=== PATIENT | male | born 1980 | race Caucasian/White ===

== ENCOUNTER 2018-03-25 12:24 | Emergency (ER) | payer BC, MEDICAID ==
[2018-03-25] MEDS ORDERED: Sodium Chloride 0.9% 10 ML Syringe FLUSH PRN (13:50)
--- NOTE | 2018-03-28 11:30 | EDM.PDOC ---
ED HPI GENERAL MEDICAL PROBLEM - General Chief Complaint: General Stated Complaint: HEART EPISODE Time Seen by Provider: 03/25/18 14:00 Source of Information: Reports: Patient - History of Present Illness INITIAL COMMENTS - FREE TEXT/NARRATIVE: This is a 37yo M with family history of heart disease here for chest pressure for over 24 hours. He has this pressure after exertion and the pain remained. He had vomiting and throwing up yesterday when the chest pressure started. The pressure has not improved or resolved. Onset: Sudden Duration: Day(s):, Constant Location: Reports: Chest Quality: Reports: Ache Severity: Moderate Improves with: Reports: None Worsens with: Reports: None - Related Data Allergies Allergy/AdvReac Type Severity Reaction Status Date / Time No Known Allergies Allergy Verified 03/27/18 17:26 Home Meds: Home Meds Lisinopril 20 mg PO DAILY 05/11/16 [History] Metoprolol Tartrate 50 mg PO Q12HR 05/11/16 [History] Past Medical History Cardiovascular History: Reports: [place] Other Cardiovascular History: [place] 2012 - Past Surgical History Cardiovascular Surgical History: Reports: None GI Surgical History: Reports: Appendectomy Social & Family History - Family History Family Medical History: Noncontributory ED ROS GENERAL - Review of Systems Review Of Systems: ROS reveals no pertinent complaints other than HPI. ED EXAM, GENERAL - Physical Exam Exam: See Below Exam Limited By: No Limitations General Appearance: Alert, WD/WN, Mild Distress Eye Exam: Bilateral Eye: EOMI, PERRL Ears: Normal External Exam Nose: Normal Inspection Throat/Mouth: Normal Inspection Head: Atraumatic, Normocephalic Neck: Normal Inspection, Supple, Non-Tender Respiratory/Chest: No Respiratory Distress, Lungs Clear, Normal Breath Sounds, No Accessory Muscle Use Cardiovascular: Normal Peripheral Pulses, Regular Rate, Rhythm Peripheral Pulses: 2+: Dorsalis Pedis (L), Dorsalis Pedis (R) GI/Abdominal: Normal Bowel Sounds Back Exam: Normal Inspection Extremities: Normal Inspection Neurological: Alert, Oriented, CN II-XII Intact Course - Vital Signs Last Recorded V/S: Last Vital Signs Temp 37.6 C 03/25/18 15:02 Pulse 75 03/25/18 15:02 Resp 18 03/25/18 15:02 BP 154/101 H 03/25/18 15:02 Pulse Ox 99 03/25/18 15:02 - Orders/Labs/Meds Orders: Medication Orders Sodium Chloride (Saline Flush) 10 ml FLUSH ASDIRECTED PRN PRN Reason: Keep Vein Open Labs: Laboratory Tests 03/25/18 03/25/18 Range/Units 14:10 14:15 WBC 11.4 H (4.0-11.0) K/uL RBC 4.93 (4.50-6.50) M/uL Hgb 14.9 (13.0-18.0) g/dL Hct 42.9 (40.0-54.0) % MCV 87 (76-96) fL MCH 30.2 (27.0-32.0) pg MCHC 34.7 (31.0-35.0) g/dL RDW 12.7 (11.0-16.0) % Plt Count 219 (150-400) K/uL MPV 8.8 (6.0-10.0) fL Neut % (Auto) 72.3 H (45.0-70.0) % Lymph % (Auto) 18.1 L (20.0-40.0) % [place] % (Auto) 8.3 (3.0-10.0) % Eos % (Auto) 0.9 L (1.0-5.0) % Baso % (Auto) 0.4 (0.0-0.5) % Neut # (Auto) 8.23 H (2.00-7.50) K/uL Lymph # (Auto) 2.06 (1.50-4.00) K/uL [place] # (Auto) 0.95 H (0.20-0.80) K/uL Eos # (Auto) 0.10 (0.04-0.40) K/uL Baso # (Auto) 0.04 (0.02-0.10) K/uL Sodium 143 (136-145) mmol/L Potassium 4.2 (3.5-5.1) mmol/L Chloride 103 (98-107) mmol/L Carbon Dioxide 29.5 (21.0-32.0) mmol/L Anion Gap 14.7 (5.0-15.0) mmol/L BUN 22 D (8-26) mg/dL Creatinine 0.93 (0.70-1.30) mg/dL Est Cr Clr Drug Dosing TNP Estimated GFR (MDRD) > 60 (>60) MLS/MIN BUN/Creatinine Ratio 23.7 (6-25) Glucose 95 (74-100) mg/dL Calcium 8.9 (8.5-10.1) mg/dL Total Bilirubin 0.4 D (0.0-1.0) mg/dL AST 19 (15-37) U/L ALT 46 (12-78) U/L Alkaline Phosphatase 67 (46-116) U/L Troponin I < 0.017 (0.000-0.060) ng/mL B-Natriuretic Peptide 68 (0-125) pg/mL Total Protein 7.8 (6.4-8.2) g/dL Albumin 3.7 (3.4-5.0) g/dL Globulin 4.1 (2.2-4.2) g/dL Albumin/Globulin Ratio 0.9 (0.8-2.0) TSH, Ultra Sensitive 2.296 (0.358-3.740) uIU/mL Meds: Medications Generic Name Dose Route Start Last Admin Trade Name Freq PRN Reason Stop Dose Admin Sodium Chloride 10 ml 03/25/18 13:50 Saline Flush FLUSH ASDIRECTED PRN Keep Vein Open - Re-Assessments/Exams Free Text/Narrative Re-Assessment/Exam: Nitro given and chest pressure resolved. Departure - Departure Time of Disposition: 16:30 Disposition: Home, Self-Care 01 Condition: Good Clinical Impression: Angina pectoris Referrals: PCP,None [Primary Care Provider] - Forms: ED Department Discharge Additional Instructions: Follow up with [employer] at work. Return to ER if CP or discomfort returns. - Problem List & Annotations (1) Angina pectoris SNOMED Code(s): 074508693 Code(s): I20.9 - ANGINA PECTORIS, UNSPECIFIED Status: Acute Priority: High - Problem List Review Problem List Initiated/Reviewed/Updated: Yes - Assessment/Plan Plan: Counseled on the need for further work up and evaluation. Discussed f/u in clinic for further Stress and management. Patient agrees with plan of care and f /u. Discussed Nitro use and side effects and f/u. Patient agrees to f/u if chest pain returns.
== END 2018-03-25 15:05 | disposition home or self-care (01) ==
LOC: LB.ED 12:24
DX: I20.9 Angina pectoris, unspecified (principal); I25.2 Old myocardial infarction; Z79.899 Other long term (current) drug therapy
CPT/HCPCS: 36415; 80053; 83880; 84443; 84484; 85025; 93005; 99285-25

== ENCOUNTER 2019-02-23 10:32 | Emergency (ER) | payer BC, MEDICAID ==
[2019-02-23] MEDS ORDERED: Aspirin 81 MG Tab.Chew PO ONE (11:04)
[2019-02-23] MEDS ORDERED: Sodium Chloride 0.9% 10 ML Syringe FLUSH PRN (11:04)
--- NOTE | 2019-02-23 11:14 | EDM.PDOC ---
ED HPI GENERAL MEDICAL PROBLEM - General Chief Complaint: General Stated Complaint: HEADACHE, LEGS HOT Time Seen by Provider: 02/23/19 11:00 Source of Information: Reports: Patient, RN History Limitations: Reports: No Limitations - History of Present Illness INITIAL COMMENTS - FREE TEXT/NARRATIVE: 38 yo male presents with chest pressure at work today, was seen at [facility] clinic and recommend to come to ER. No more chest pressure at this time. 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 He takes several BP medications and can't remember what he takes. Reviewed medications on his phone, recently started taking a statin for cholesterol, take Norvasc 10 mg PO daily, Lisinopril 20 mg PO daily and Atenolol daily. States headache to back of head at work today. Chest pressure is relieved, headache persists. Work up for chest pain, cardiac. ASA 324 mg PO now. Pt states he likes to run and has regular activity at work, states he recently has gained some weight and feels better when weight has decreased. Denies any added salt to diet and no caffeine to diet. - Related Data Allergies Allergy/AdvReac Type Severity Reaction Status Date / Time No Known Allergies Allergy Verified 03/28/18 16:44 Home Meds: Home Meds Lisinopril 20 mg PO DAILY 05/11/16 [History] Aspirin 81 mg PO DAILY 02/23/19 [History] amLODIPine Besylate [Norvasc] 10 mg PO DAILY 02/23/19 [History] atenoloL [Atenolol] 50 mg PO DAILY 02/23/19 [History] atorvaSTATin [Lipitor] 20 mg PO DAILY 02/23/19 [History] Past Medical History Cardiovascular History: Reports: [place] Other Cardiovascular History: [place] 2012 - Past Surgical History Cardiovascular Surgical History: Reports: None GI Surgical History: Reports: Appendectomy Social & Family History - Family History Family Medical History: Noncontributory - Tobacco Use Smoking Status *Q: Never Smoker ED ROS GENERAL - Review of Systems Review Of Systems: See Below Constitutional: Reports: No Symptoms. Denies: Fever, Chills, Diaphoresis HEENT: Reports: No Symptoms. Denies: Eye Pain, Vision Change Respiratory: Reports: No Symptoms. Denies: Shortness of Breath, Cough Cardiovascular: Reports: Chest Pain, Blood Pressure Problem. Denies: Edema Endocrine: Reports: No Symptoms GI/Abdominal: Reports: No Symptoms. Denies: Diarrhea, Nausea, Vomiting : Reports: No Symptoms Musculoskeletal: Reports: Other (pain to shins). Denies: Neck Pain, Shoulder Pain Skin: Reports: No Symptoms Neurological: Reports: Headache. Denies: Confusion, Dizziness, Trouble Speaking , Difficulty Walking Psychiatric: Reports: No Symptoms Hematologic/Lymphatic: Reports: No Symptoms ED EXAM, GENERAL - Physical Exam Exam: See Below Exam Limited By: No Limitations General Appearance: Alert, No Apparent Distress Ears: Hearing Grossly Normal Nose: Normal Inspection Throat/Mouth: Normal Inspection, Normal Voice, No Airway Compromise Head: Atraumatic, Normocephalic Neck: Non-Tender, Full Range of Motion Respiratory/Chest: No Respiratory Distress, Lungs Clear, Normal Breath Sounds Cardiovascular: Regular Rate, Rhythm, No Edema Peripheral Pulses: 2+: Radial (L), Radial (R) GI/Abdominal: Normal Bowel Sounds, Soft, Non-Tender Back Exam: Normal Inspection. No: Paraspinal Tenderness, Vertebral Tenderness Extremities: Normal Range of Motion, Non-Tender, No Pedal Edema Neurological: Alert, Oriented, Normal Cognition Psychiatric: Normal Affect, Normal Mood Skin Exam: Warm, Dry, Normal Color Lymphatic: No Adenopathy EKG INTERPRETATION EKG Date: 02/23/19 Rhythm: NSR ST-T: Normal Comparison: No Change Course - Vital Signs Last Recorded V/S: Last Vital Signs Temp 98.4 F 02/23/19 13:21 Pulse 62 02/23/19 13:21 Resp 16 02/23/19 13:21 BP 129/83 02/23/19 13:21 Pulse Ox 97 02/23/19 13:21 - Orders/Labs/Meds Orders: Active Orders 24 hr Category Date Time Status EKG Documentation Completion [RC] ASDIRECTED Care 02/23/19 11:06 Active Labs: Laboratory Tests 02/23/19 02/23/19 Range/Units 11:15 11:15 WBC 10.3 (4.0-11.0) K/uL RBC 5.24 (4.50-6.50) M/uL Hgb 15.7 (13.0-18.0) g/dL Hct 45.2 (40.0-54.0) % MCV 86 (76-96) fL MCH 30.0 (27.0-32.0) pg MCHC 34.7 (31.0-35.0) g/dL RDW 12.3 (11.0-16.0) % Plt Count 235 (150-400) K/uL MPV 9.0 (6.0-10.0) fL Neut % (Auto) 73.0 H (45.0-70.0) % Lymph % (Auto) 18.4 L (20.0-40.0) % [place] % (Auto) 7.7 (3.0-10.0) % Eos % (Auto) 0.6 L (1.0-5.0) % Baso % (Auto) 0.3 (0.0-0.5) % Neut # (Auto) 7.53 H (2.00-7.50) K/uL Lymph # (Auto) 1.90 (1.50-4.00) K/uL [place] # (Auto) 0.79 (0.20-0.80) K/uL Eos # (Auto) 0.06 (0.04-0.40) K/uL Baso # (Auto) 0.03 (0.02-0.10) K/uL Sodium 139 (136-145) mmol/L Potassium 4.7 (3.5-5.1) mmol/L Chloride 100 (98-107) mmol/L Carbon Dioxide 29.5 (21.0-32.0) mmol/L Anion Gap 14.2 (5.0-15.0) mmol/L BUN 23 (8-26) mg/dL Creatinine 1.02 (0.70-1.30) mg/dL Est Cr Clr Drug Dosing 107.78 mL/min Estimated GFR (MDRD) > 60 (>60) MLS/MIN BUN/Creatinine Ratio 22.5 (6-25) Glucose 116 H (74-100) mg/dL Calcium 9.1 (8.5-10.1) mg/dL Magnesium 2.1 (1.8-2.4) mg/dL Troponin I < 0.017 (0.000-0.060) ng/mL Meds: Medications Discontinued Medications Generic Name Dose Route Start Last Admin Trade Name Freq PRN Reason Stop Dose Admin Acetaminophen 650 mg 02/23/19 12:14 01/06/20 12:22 Tylenol PO 650 mg Q4H PRN Administration Headache/Pain Acetaminophen Confirm 02/23/19 12:24 02/23/19 12:24 Tylenol Administered 02/23/19 12:25 Not Given Dose 650 mg .ROUTE .STK-MED ONE Aspirin 324 mg 02/23/19 11:04 02/23/19 11:15 Aspirin PO 02/23/19 11:05 324 mg ONETIME ONE Administration Sodium Chloride 1,000 mls @ 999 mls/hr 02/23/19 12:15 02/23/19 12:20 Normal Saline IV 999 mls/hr ASDIRECTED BEVERLEY Administration Sodium Chloride 10 ml 02/23/19 11:04 Saline Flush FLUSH ASDIRECTED PRN Keep Vein Open - Re-Assessments/Exams Free Text/Narrative Re-Assessment/Exam: 02/23/19 Cardiac work-up results reviewed with pt, no elevation in troponin, no change in EKG from previous. Pt has had a stress test last year and has been going to cardiology in [place], [place]. Chest pressure resolved after pt at rest and BP normal in ER. Tylenol given for headache and one liter IV fluids. Recommend to increase Lisinopril to 30 mg PO daily. Monitor BP at home. Rest and relax today. Tylenol as needed for headache and cardiac diet, limit caffeine intake. Continue with weight loss, diet control and exercise for BP control. Departure - Departure Time of Disposition: 13:24 Disposition: Home, Self-Care 01 Condition: Good Clinical Impression: Hypertension - Discharge Information *PRESCRIPTION DRUG MONITORING PROGRAM REVIEWED*: Not Applicable *COPY OF PRESCRIPTION DRUG MONITORING REPORT IN PATIENT [place]: Not Applicable Instructions: Hypertension, [id number] Referrals: PCP,None [Primary Care Provider] - Forms: ED Department Discharge Additional Instructions: *Increase Lisinopril to 30 mg daily *Monitor blood pressure daily *Take Tylenol as needed for headache *Follow up with primary care provider in 1 week *If symptoms worsen or persist please return to the clinic or ER If you have any questions or concerns please call us at [phone] Sepsis Event Note - Focused Exam Date Exam was Performed: 02/24/19 Time Exam was Performed: 12:04 - My Orders Last 24 Hours: My Active Orders 02/23/19 11:06 EKG Documentation Completion [RC] ASDIRECTED - Assessment/Plan Last 24 Hours: My Active Orders 02/23/19 11:06 EKG Documentation Completion [RC] ASDIRECTED Plan: Cardiac work-up results reviewed with pt, no elevation in troponin, no change in EKG from previous. Pt has had a stress test last year and has been going to cardiology in [place], [place]. Chest pressure resolved after pt at rest and BP normal in ER. Tylenol given for headache and one liter IV fluids. Recommend to increase Lisinopril to 30 mg PO daily. Monitor BP at home. Rest and relax today. Tylenol as needed for headache and cardiac diet, limit caffeine intake. Continue with weight loss, diet control and exercise for BP control. F/U with PCP in one week.
[2019-02-23] MEDS ORDERED: Acetaminophen 325 MG Tab PO PRN (12:14)
[2019-02-23] MEDS ORDERED: Sodium Chloride 0.9% 1,000 ML IV SCH (12:15)
[2019-02-23] MEDS ORDERED: Acetaminophen 325 MG Tab ONE (12:24)
== END 2019-02-23 13:30 | disposition home or self-care (01) ==
LOC: LB.ED 10:32
DX: I10 Essential (primary) hypertension (principal); I25.2 Old myocardial infarction; Z79.82 Long term (current) use of aspirin; Z79.899 Other long term (current) drug therapy; Z90.49 Acquired absence of other specified parts of digestive tract
CPT/HCPCS: 36415; 80048; 83735; 84484; 85025; 93005; 96360; 99285-25; A9270-GY; J7030

== ENCOUNTER 2020-12-05 16:18 | Emergency (ER) | payer BC, MEDICAID ==
--- NOTE | 2020-12-05 17:48 | EDM.PDOC ---
ED HPI GENERAL MEDICAL PROBLEM - General Stated Complaint: CHEST PAIN/ COVID POSSITIVE Time Seen by Provider: 12/05/20 16:30 - History of Present Illness INITIAL COMMENTS - FREE TEXT/NARRATIVE: Pt comes in with C/O chest pain that he has had for awhile today. He tested positive for CoviD today as well. He has had some coughing for a few days, but it is getting better. He has no SOB or wheezing, nausea, or vomiting. He does have Hx of heart dz, telling me he see's a Accessioner every 2 yrs, who tells him he will be fine. He has never had angioplasty or even had Nitro at home. - Related Data Allergies Allergy/AdvReac Type Severity Reaction Status Date / Time No Known Allergies Allergy Verified 03/28/18 16:44 Home Meds: Home Meds Lisinopril 20 mg PO DAILY 05/11/16 [History] Aspirin 81 mg PO DAILY 02/23/19 [History] amLODIPine Besylate [Norvasc] 10 mg PO DAILY 02/23/19 [History] atenoloL [Atenolol] 50 mg PO DAILY 02/23/19 [History] atorvaSTATin [Lipitor] 20 mg PO DAILY 02/23/19 [History] Past Medical History Cardiovascular History: Reports: [place] Other Cardiovascular History: [place] 2012 - Past Surgical History Cardiovascular Surgical History: Reports: None GI Surgical History: Reports: Appendectomy Social & Family History - Family History Family Medical History: No Pertinent Family History ED ROS GENERAL - Review of Systems Review Of Systems: Comprehensive ROS is negative, except as noted in HPI. Cardiovascular: Reports: Chest Pain (rated at 3-4/10.) ED EXAM, GENERAL - Physical Exam Exam: See Below Free Text/Narrative:: Pt is awake and alert. In no distress. #1 Interpretation EKG Date: 12/05/20 Time: 13:00 ST-T: Other (possible mild elevation in the lateral leads.) Course - Orders/Labs/Meds Orders: Active Orders 24 hr Category Date Time Status EKG Documentation Completion [RC] ASDIRECTED Care 12/05/20 16:52 Active Nurse Communication: Isolation [RC] ASDIRECTED Care 12/05/20 17:18 Active Chest 1V Frontal [CR] Stat Exams 12/05/20 16:53 Ordered Isolation [COMM] Routine Oth 12/05/20 17:17 Active Labs: Laboratory Tests 12/05/20 12/05/20 Range/Units 17:00 17:00 WBC 9.0 (4.0-11.0) K/uL RBC 5.30 (4.50-6.50) M/uL Hgb 15.7 (13.0-18.0) g/dL Hct 44.8 (40.0-54.0) % MCV 85 (76-96) fL MCH 29.6 (27.0-32.0) pg MCHC 35.0 (31.0-35.0) g/dL RDW 12.4 (11.0-16.0) % Plt Count 233 (150-400) K/uL MPV 8.9 (6.0-10.0) fL Neut % (Auto) 64.5 (45.0-70.0) % Lymph % (Auto) 25.4 (20.0-40.0) % [place] % (Auto) 9.1 (3.0-10.0) % Eos % (Auto) 0.8 L (1.0-5.0) % Baso % (Auto) 0.2 (0.0-0.5) % Neut # (Auto) 5.78 (2.00-7.50) K/uL Lymph # (Auto) 2.28 (1.50-4.00) K/uL [place] # (Auto) 0.82 H (0.20-0.80) K/uL Eos # (Auto) 0.07 (0.04-0.40) K/uL Baso # (Auto) 0.02 (0.02-0.10) K/uL Sodium 137 (136-145) mmol/L Potassium 4.4 (3.5-5.1) mmol/L Chloride 102 (98-107) mmol/L Carbon Dioxide 27.6 (21.0-32.0) mmol/L Anion Gap 11.8 (5.0-15.0) mmol/L BUN 19 (8-26) mg/dL Creatinine 0.99 (0.70-1.30) mg/dL Est Cr Clr Drug Dosing TNP Estimated GFR (MDRD) > 60 (>60) MLS/MIN BUN/Creatinine Ratio 19.2 (6-25) Glucose 104 H (74-100) mg/dL Calcium 9.5 (8.5-10.1) mg/dL Total Bilirubin 1.2 H D (0.0-1.0) mg/dL AST 32 (15-37) U/L ALT 73 (12-78) U/L Alkaline Phosphatase 90 (46-116) U/L Troponin I < 0.017 (0.000-0.060) ng/mL Total Protein 8.7 H (6.4-8.2) g/dL Albumin 4.2 (3.4-5.0) g/dL Globulin 4.5 H (2.2-4.2) g/dL Albumin/Globulin Ratio 0.9 (0.8-2.0) - Re-Assessments/Exams Free Text/Narrative Re-Assessment/Exam: 12/05/20 17:48 Nitro was given x 1, which did help his pain. Labs and CXR are negative. Trop is negative. I discussed the test results with the pt. I offered a Cardiology consult, versus sending him home with Nitro. He refuses the consult, telling me he is very comfortable going home. He has been run in 2 full Marathons this fall, and did well with that. He agree's to take Nitro home with him, and us it as needed. We also discussed Covid tx measures. He is to rest - use OTC meds as needed - and light duty activity as tolerated. Covid precautions discussed. He refuses Regeneron today. He has no other questions. Departure - Departure Time of Disposition: 17:45 Disposition: Home, Self-Care 01 Condition: Good Clinical Impression: Angina pectoris, COVID-19 Referrals: PCP,None [Primary Care Provider] - Additional Instructions: Rest - use OTC meds as needed like Tylenol or Motrin. Light duty activity as tolerated. Monitor for worsening covid symptoms and call or come back as needed. He will be given Nitro tabs - use 1 tab under the tongue as needed for chest pain. Can repeat in 5 minutes if needed up to 3 doses. - My Orders Last 24 Hours: My Active Orders 12/05/20 16:52 EKG Documentation Completion [RC] ASDIRECTED 12/05/20 16:53 Chest 1V Frontal [CR] Stat 12/05/20 17:17 Isolation [COMM] Routine 12/05/20 17:18 Nurse Communication: Isolation [RC] ASDIRECTED - Assessment/Plan Last 24 Hours: My Active Orders 12/05/20 16:52 EKG Documentation Completion [RC] ASDIRECTED 12/05/20 16:53 Chest 1V Frontal [CR] Stat 12/05/20 17:17 Isolation [COMM] Routine 12/05/20 17:18 Nurse Communication: Isolation [RC] ASDIRECTED
--- NOTE | 2020-12-06 08:03 | CR ---
DATE OF SERVICE: 12/05/20 CLINICAL DATA: Chest pain - COVID positive. AP PORTABLE CHEST: No priors. The patient is in an apical lordotic position. The heart size is normal. The lungs are clear. No pneumothorax. No pleural effusions. No evidence of acute intrathoracic disease. [id number] MTDD
== END 2020-12-05 17:45 | disposition home or self-care (01) ==
LOC: LB.ED 16:18
DX: U07.1 COVID-19 (principal); I20.9 Angina pectoris, unspecified; I25.2 Old myocardial infarction
CPT/HCPCS: 36415; 71045; 80053; 84484; 85025; 93005; 99285-25